=== PATIENT | female | born 1955 | race Caucasian/White ===

== ENCOUNTER 2023-05-28 22:07 | Emergency (ER) | payer MEDICARE, OTHER ==
[~2023-05-28] VITALS: Ht 157.5 cm; Wt 82.2 kg
[~2023-05-28 22:07] MED LIST: COR3 PO; FURO-151 MT; FURO-152 MT; FURO40TA5 PO; GABA-534 PO; GABA800T97 MT; INSLIS SUBCUT; INSU100I24 SQ; LANTUSUD SUBCUT; LIP40 PO; LOSA-412 PO; PULM50 HHN
[2023-05-28 22:21] VITALS: O2SAT 97
[2023-05-28 23:16] LABS: BASOPHILS % 1.3 % (0.0-2.0); EOSINOPHILS % 3.2 % (0.0-5.0); HEMATOCRIT. 37.7 % (36.0-48.0); HEMOGLOBIN. 12.8 g/dL (12.0-16.0); LYMPHOCYTES % 35.5 % (20.0-50.0); MEAN CORPUSCULAR HEMOGLOBIN 30.5 pg (28.0-32.0); MEAN CORPUSCULAR HGB CONC 33.9 g/dL (31.0-37.0); MEAN PLATELET VOLUME 9.7 fl (7.4-10.4); MONOCYTES % 7.6 % (2.0-8.0); NEUTROPHILS % 52.4 % (40.0-76.0); PLATELET 135 x1000/uL (130-400); RED BLOOD CELL COUNT 4.18 mill/uL (4.2-5.4); RED CELL DISTRIBUTION WIDTH 13.9 % (11.6-14.6); WHITE BLOOD COUNT 5.5 x1000/uL (4.5-11.0)
[2023-05-28 23:27] LABS: PARTIAL THROMBOPLASTIN TIME 28.5 sec (23.4-31.0); PROTHROMBIN TIME 10.4 sec (9.6-11.0)
[2023-05-28 23:31] LABS: ALANINE AMINOTRANSFERASE 14 IU/L (10-49); ALBUMIN 4.2 g/dL (3.2-4.8); ASPARTATE AMINOTRANSFERASE 19 IU/L (<34); BILIRUBIN TOTAL 0.5 mg/dL (0.1-1.0); CALCIUM 9.5 mg/dL (8.7-10.4); CARBON DIOXIDE 27 mEq/L (21-32); CHLORIDE 108 mEq/L (98-107); GLUCOSE 141 mg/dL (70-105); POTASSIUM 4.5 mEq/L (3.5-5.1); PROTEIN TOTAL 7.5 g/dL (6.0-8.3); SODIUM 142 mEq/L (136-145); TROPONIN I HIGH SENSITIVITY 9 ng/L (3.0-34); UREA NITROGEN BLOOD 29 mg/dL (9-23)
[2023-05-29 03:52] LABS: TROPONIN I HIGH SENSITIVITY 13 ng/L (3.0-34)
[2023-05-29] MEDS ORDERED: ACETAMINOPHEN 325MG TABLET PO ONE (05:00)
[2023-05-29 08:00] VITALS: TEMP 97.4
[2023-05-29 09:20] VITALS: BP 141/81; PULSE 82; RESP 21
== END 2023-05-29 09:22 | disposition short-term general hospital (02) ==
LOC: ER 22:07
DX: R06.02 Shortness of breath (principal); M25.511 Pain in right shoulder; E11.9 Type 2 diabetes mellitus without complications; I11.0 Hypertensive heart disease with heart failure; I50.9 Heart failure, unspecified; Z88.6 Allergy status to analgesic agent
CPT/HCPCS: 80053; 83880; 85025; 85610; 85730; 84484 ×2; 36415 ×2; 71045; 93005; 99285; 73030; Z7610 ×2

== ENCOUNTER 2024-01-09 15:18 | Emergency (ER) | payer MEDICARE, OTHER ==
[~2024-01-09] VITALS: Ht 157.5 cm; Wt 91.1 kg
[2024-01-09 15:23] VITALS: BP 139/77; PULSE 95; RESP 16; TEMP 98.6; O2SAT 98
[2024-01-09] MEDS ORDERED: DOXY100C5 MT (16:04)
[2024-01-09] MEDS ORDERED: BO1 TP (16:05)
== END 2024-01-09 16:27 | disposition home or self-care (01) ==
LOC: ER 15:18
DX: S40.821A Blister (nonthermal) of right upper arm, initial encounter (principal); L03.113 Cellulitis of right upper limb; I50.9 Heart failure, unspecified; E11.9 Type 2 diabetes mellitus without complications; F12.10 Cannabis abuse, uncomplicated; Z79.4 Long term (current) use of insulin; Z88.8 Allergy status to other drugs, medicaments and biological substances; Z79.899 Other long term (current) drug therapy; X30.XXXA Exposure to excessive natural heat, initial encounter; Y93.89 Activity, other specified; Y92.89 Other specified places as the place of occurrence of the external cause; Y99.8 Other external cause status
CPT/HCPCS: 99283

== ENCOUNTER 2024-02-27 11:00 | Inpatient (IN) | payer MEDICARE, OTHER ==
[~2024-02-27] VITALS: Ht 157.5 cm; Wt 88.0 kg
[~2024-02-27 11:00] MED LIST changes: +BO1 TP; +DOXY100C5 MT
[2024-02-27 11:59] LABS: CHLORIDE 108 mEq/L (98-107); POTASSIUM 4.6 mEq/L (3.5-5.1); SODIUM 142 mEq/L (136-145)
[2024-02-27 12:00] LABS: CALCIUM 10.2 mg/dL (8.7-10.4); CARBON DIOXIDE 25 mEq/L (21-32)
[2024-02-27 12:04] LABS: BASOPHILS % 1.3 % (0.0-2.0); EOSINOPHILS % 1.5 % (0.0-5.0); HEMATOCRIT. 40.6 % (36.0-48.0); HEMOGLOBIN. 13.2 g/dL (12.0-16.0); LYMPHOCYTES % 31.6 % (20.0-50.0); MEAN CORPUSCULAR HEMOGLOBIN 29.7 pg (28.0-32.0); MEAN CORPUSCULAR HGB CONC 32.6 g/dL (31.0-37.0); MEAN CORPUSCULAR VOLUME 91.1 fL (81.0-99.0); MONOCYTES % 6.3 % (2.0-8.0); NEUTROPHILS % 59.3 % (40.0-76.0); RED BLOOD CELL COUNT 4.45 mill/uL (4.2-5.4); RED CELL DISTRIBUTION WIDTH 13.2 % (11.6-14.6); WHITE BLOOD COUNT 6.3 x1000/uL (4.5-11.0)
[2024-02-27 12:05] LABS: GLUCOSE 157 mg/dL (70-105); TROPONIN I HIGH SENSITIVITY 11 ng/L (3.0-34); UREA NITROGEN BLOOD 17 mg/dL (9-23)
[2024-02-27 12:08] LABS: DIFFERENTIAL COMMENT 1
[2024-02-27 12:53] LABS: PROTHROMBIN TIME 10.9 sec (9.6-11.0)
[2024-02-27 13:09] LABS: PLATELET 141 x1000/uL (130-400)
[2024-02-28] MEDS ORDERED: ONDANSETRON HCL 4MG/2ML INJ IV PRN (10:00)
[2024-02-28] MEDS: LOSARTAN 25 MG TABLET PO SCH (10:35)
[2024-02-28] MEDS: FUROSEMIDE 40MG/4ML VIAL IVP SCH (10:35)
[2024-02-28 16:00] VITALS: BP 137/97; PULSE 106; RESP 16; TEMP 36.9474; O2SAT 96
[2024-02-28] MEDS: ACETAMINOPHEN 325MG TABLET PO PRN (16:47)
[2024-02-28] MEDS ORDERED: DEXTROSE 50% WATER 50ML SYRINGE IV PRN (17:15)
[2024-02-28 17:43] VITALS: BP 137/97; PULSE 106; RESP 16; TEMP 36.974
[2024-02-28] MEDS: INFLUENZA VACCINE 05/PF 0.5 ML SYRINGE IM ONE (17:45)
[2024-02-28] MEDS: INSULIN LISPRO 100 UNITS/ML SUBCUT SCH (17:48)
[2024-02-28 20:00] VITALS: BP 90/63; PULSE 78; RESP 21; TEMP 36.55848; O2SAT 94
[2024-02-28 22:15] LABS: TROPONIN I HIGH SENSITIVITY 11 ng/L (3.0-34)
[2024-02-28] MEDS: BLOOD SUGAR DIAGNOSTIC STRIP TEST SCH (22:25)
[2024-02-28 22:34] LABS: HEPATITIS B SURFACE ANTIGEN NEGATIVE (Negative)
[2024-02-28] MEDS: CARVEDILOL 3.125 MG TABLET PO SCH (22:40)
[2024-02-28 22:55] LABS: HEPATITIS C AB NON REACTIVE (Neg) (Negative)
[2024-02-29] VITALS (7 sets, daily range): BP systolic 110–145; BP diastolic 60–82; PULSE 81–113; RESP 9–25; TEMP 36.61404–36.83628; O2SAT 94–98
[2024-02-29] MEDS ORDERED: DEXTROSE 50% WATER 50ML SYRINGE IV PRN (10:45)
[2024-02-29] MEDS: ASPIRIN 81MG TABLET PO SCH (11:22)
[2024-02-29] MEDS: METOLAZONE 2.5MG TABLET PO NR (11:22)
[2024-02-29] MEDS: BLOOD SUGAR DIAGNOSTIC STRIP TEST SCH (12:07)
[2024-02-29] MEDS: INSULIN LISPRO 100 UNITS/ML SUBCUT SCH (12:47)
[2024-02-29] MEDS: GABAPENTIN 300MG CAPSULE PO SCH (14:03)
[2024-02-29] MEDS: ATORVASTATIN CALCIUM 20MG TABLET PO SCH (20:53)
[2024-03-01 00:08] VITALS: BP 107/62; PULSE 97; RESP 26; TEMP 37.00296; O2SAT 95
[2024-03-01 04:22] VITALS: BP 95/55; PULSE 82; RESP 12; TEMP 36.83628; O2SAT 94
[2024-03-01 07:40] LABS: POTASSIUM 3.6 mEq/L (3.5-5.1)
[2024-03-01 07:41] LABS: CALCIUM 10.4 mg/dL (8.7-10.4)
[2024-03-01 07:46] LABS: CREATININE 1.1 mg/dL (0.6-1.0)
[2024-03-01 08:00] VITALS: BP 86/67; PULSE 101; RESP 10; TEMP 35.89176; O2SAT 96
[2024-03-01] MEDS: SPIRONOLACTONE 25MG TABLET PO SCH (09:00)
[2024-03-01 12:00] VITALS: BP 124/76; PULSE 100; RESP 19; TEMP 36.16956; O2SAT 96
[2024-03-01 13:14] VITALS: BP 124/76; PULSE 100; TEMP 97.1; O2SAT 96
== END 2024-03-01 13:56 | disposition home or self-care (01) | DRG 194 ==
LOC: ER 11:17 → MICUSO 12:57 → EDBEDREQ 12:58 → EDBEDREQTM 12:58 → 5WST 02-28 06:40 → 3WST 02-28 15:30
PROVIDERS: ADMIT Internal Medicine; ATTEND Internal Medicine
DX: I11.0 Hypertensive heart disease with heart failure (principal); J96.00 Acute respiratory failure, unspecified whether with hypoxia or hypercapnia; I42.8 Other cardiomyopathies; I50.23 Acute on chronic systolic (congestive) heart failure; N17.9 Acute kidney failure, unspecified; I25.10 Atherosclerotic heart disease of native coronary artery without angina pectoris; E11.9 Type 2 diabetes mellitus without complications; F12.90 Cannabis use, unspecified, uncomplicated; E66.01 Morbid (severe) obesity due to excess calories; Z82.49 Family history of ischemic heart disease and other diseases of the circulatory system; Z88.6 Allergy status to analgesic agent; Z79.4 Long term (current) use of insulin; Z23 Encounter for immunization; Z79.899 Other long term (current) drug therapy; Z68.35 Body mass index [BMI] 35.0-35.9, adult; Z83.6 Family history of other diseases of the respiratory system
CPT/HCPCS: 36415; 71045; 80048; 82962; 83036; 83880; 84484; 85025; 86705; 87340; 90686; 93005; 93306; 99291; J1815; J1940

== ENCOUNTER 2024-08-19 09:36 | Inpatient (IN) | payer MEDICARE, OTHER ==
[~2024-08-19] VITALS: Ht 157.5 cm; Wt 100.3 kg
[2024-08-19 10:46] LABS: BASOPHILS % 1.1 % (0.0-2.0); EOSINOPHILS % 3.5 % (0.0-5.0); HEMATOCRIT. 38.9 % (36.0-48.0); HEMOGLOBIN. 12.8 g/dL (12.0-16.0); MEAN CORPUSCULAR HEMOGLOBIN 29.9 pg (28.0-32.0); MEAN CORPUSCULAR HGB CONC 32.9 g/dL (31.0-37.0); MEAN CORPUSCULAR VOLUME 90.9 fL (81.0-99.0); MEAN PLATELET VOLUME 10.2 fl (7.4-10.4); MONOCYTES % 6.8 % (2.0-8.0); NEUTROPHILS % 45.6 % (40.0-76.0); PLATELET 124 x1000/uL (130-400); RED BLOOD CELL COUNT 4.28 mill/uL (4.2-5.4); RED CELL DISTRIBUTION WIDTH 13.3 % (11.6-14.6); WHITE BLOOD COUNT 4.3 x1000/uL (4.5-11.0)
[2024-08-19 10:58] LABS: POTASSIUM 4.7 mEq/L (3.5-5.1)
[2024-08-19 10:59] LABS: CALCIUM 9.4 mg/dL (8.7-10.4)
[2024-08-19] MEDS ORDERED: IODIXANOL 320MG/ML 100 ML BOTTLE IV ONE (11:28)
[2024-08-19] MEDS ORDERED: GENTAMICIN SULF 40MG/ML 2ML VIAL ONE (11:28)
[2024-08-19] MEDS ORDERED: LIDOCAINE HCL 1% 20ML VIAL ONE (11:29)
[2024-08-19] MEDS ORDERED: GENTAMICIN/NS IRRIGATION 500 ML IR NR (11:30)
[2024-08-19 11:34] LABS: PARTIAL THROMBOPLASTIN TIME 27.6 sec (23.4-31.0); PROTHROMBIN TIME 11.1 sec (9.6-11.0)
[2024-08-19] MEDS ORDERED: ASPI-864 PO (11:50)
[2024-08-19] MEDS ORDERED: SACU1TAB7 PO (11:50)
[2024-08-19] MEDS ORDERED: DAPA5TAB PO (11:50)
[2024-08-19] MEDS ORDERED: DICL75TA5 PO (11:50)
[2024-08-19] MEDS ORDERED: INSU100I28 SQ (11:50)
[2024-08-19] MEDS ORDERED: GABA800T97 PO (11:50)
[2024-08-19] MEDS ORDERED: ACET-2708 PO (11:50)
[2024-08-19] MEDS ORDERED: CARV12.545 PO (11:50)
[2024-08-19] MEDS ORDERED: ATOR40TA70 PO (11:50)
[2024-08-19] MEDS ORDERED: FURO40TA5 PO (11:50)
[2024-08-19] MEDS: SODIUM CHLORIDE 0.45% 500 ML IV SCH (11:51)
[2024-08-19] MEDS ORDERED: FENTANYL CITRATE/PF 50MCG/ML 2ML VIAL ONE ×3 (11:57→14:31)
[2024-08-19] MEDS ORDERED: LIDOCAINE HCL 1% 10 MG/ML 10ML VIAL ONE (11:58)
[2024-08-19] MEDS ORDERED: PROPOFOL 200MG/20ML VIAL IV ONE (11:59)
[2024-08-19] MEDS ORDERED: PHENYLEPHRINE HCL 10MG/ML 1ML IV ONE (12:11)
[2024-08-19] MEDS ORDERED: CEFAZOLIN SODIUM 1000MG/VIAL ONE (12:22)
[2024-08-19] MEDS ORDERED: ONDANSETRON HCL 4MG/2ML INJ ONE (12:25)
[2024-08-19] MEDS ORDERED: METOCLOPRAMIDE HCL 10MG/2ML VIAL ONE (12:25)
[2024-08-19] MEDS ORDERED: EPHEDRINE SULFATE 50MG/ML VIAL ONE (12:39)
[2024-08-19] MEDS ORDERED: ONDANSETRON HCL 4MG/2ML INJ IV PRN (15:15)
[2024-08-19] MEDS ORDERED: FENTANYL CITRATE/PF 50MCG/ML 2ML VIAL IV PRN (15:15)
[2024-08-19] MEDS ORDERED: HYDROCODONE/ACETAMINOPHEN 5/325MG TABLET PO PRN (15:15)
[2024-08-19] MEDS ORDERED: NALOXONE HCL 0.4MG/ML VIAL IV PRN (15:45)
[2024-08-19 16:20] VITALS: BP 122/56; PULSE 110; RESP 17; TEMP 36.5; O2SAT 95
[2024-08-19 17:23] VITALS: BP 122/56; PULSE 103; RESP 14; TEMP 36.3
[2024-08-19 20:00] VITALS: BP 116/78; PULSE 102; RESP 17; TEMP 36.2; O2SAT 98
[2024-08-19] MEDS: CARVEDILOL 12.5MG TABLET PO SCH (21:19)
[2024-08-19] MEDS: SACUBITRIL/VALSARTAN 49MG/51MG TABLET PO SCH (21:19)
[2024-08-19 22:47] VITALS: PULSE 97; RESP 20; O2SAT 97
[2024-08-20] VITALS: BP 115/68; PULSE 87; RESP 12; TEMP 36.6; O2SAT 99
[2024-08-20 04:00] VITALS: BP 123/69; PULSE 90; RESP 16; TEMP 36.7; O2SAT 98
[2024-08-20 06:43] LABS: BASOPHILS % 0.7 % (0.0-2.0); EOSINOPHILS % 1.6 % (0.0-5.0); HEMATOCRIT. 37.1 % (36.0-48.0); LYMPHOCYTES % 23.2 % (20.0-50.0); MEAN CORPUSCULAR HEMOGLOBIN 29.4 pg (28.0-32.0); MEAN CORPUSCULAR HGB CONC 32.4 g/dL (31.0-37.0); MEAN CORPUSCULAR VOLUME 90.6 fL (81.0-99.0); MEAN PLATELET VOLUME 10.7 fl (7.4-10.4); MONOCYTES % 7.9 % (2.0-8.0); NEUTROPHILS % 66.6 % (40.0-76.0); PLATELET 112 x1000/uL (130-400); RED CELL DISTRIBUTION WIDTH 13.6 % (11.6-14.6); WHITE BLOOD COUNT 6.7 x1000/uL (4.5-11.0)
[2024-08-20 07:10] LABS: CARBON DIOXIDE 25 mEq/L (21-32); CHLORIDE 110 mEq/L (98-107); POTASSIUM 4.4 mEq/L (3.5-5.1); SODIUM 144 mEq/L (136-145)
[2024-08-20 07:11] LABS: CALCIUM 9.1 mg/dL (8.7-10.4)
[2024-08-20 07:15] LABS: CREATININE 0.8 mg/dL (0.6-1.0)
[2024-08-20 07:16] LABS: GLUCOSE 125 mg/dL (70-105); UREA NITROGEN BLOOD 14 mg/dL (9-23)
[2024-08-20 08:00] VITALS: BP 115/83; PULSE 90; RESP 16; TEMP 36.8; O2SAT 98
[2024-08-20] MEDS: FUROSEMIDE 40MG TABLET PO SCH (08:52)
[2024-08-20 12:00] VITALS: BP 119/60; PULSE 90; RESP 16; TEMP 36.7; O2SAT 98
[2024-08-20 14:36] VITALS: BP 119/60; PULSE 85; TEMP 98; O2SAT 95
[2024-08-20] MEDS ORDERED: CEPH250C2 MT (16:47)
[2024-08-20] MEDS ORDERED: TRAM50TA3 MT (16:52)
== END 2024-08-20 18:26 | disposition home or self-care (01) | DRG 275 ==
LOC: CCL 09:36 → 3WST 16:20
PROVIDERS: ADMIT Internal Medicine Clinical Cardiac Electrophysiology; ATTEND Internal Medicine Clinical Cardiac Electrophysiology
PROC: 4A023N6 Measurement of Cardiac Sampling and Pressure, Right Heart, Percutaneous Approach (ICD-10-PCS; principal; 2024-08-19)
PROC: 0JH609Z Insertion of Cardiac Resynchronization Defibrillator Pulse Generator into Chest Subcutaneous Tissue and Fascia, Open Approach (ICD-10-PCS; 2024-08-19)
PROC: 02HK3KZ Insertion of Defibrillator Lead into Right Ventricle, Percutaneous Approach (ICD-10-PCS; 2024-08-19)
PROC: 02H63KZ Insertion of Defibrillator Lead into Right Atrium, Percutaneous Approach (ICD-10-PCS; 2024-08-19)
PROC: B517YZZ Fluoroscopy of Left Subclavian Vein using Other Contrast (ICD-10-PCS; 2024-08-19)
PROC: 4A0234Z Measurement of Cardiac Electrical Activity, Percutaneous Approach (ICD-10-PCS; 2024-08-19)
PROC: 4B02XTZ Measurement of Cardiac Defibrillator, External Approach (ICD-10-PCS; 2024-08-19)
DX: I44.7 Left bundle-branch block, unspecified (principal); I50.23 Acute on chronic systolic (congestive) heart failure; I13.0 Hypertensive heart and chronic kidney disease with heart failure and stage 1 through stage 4 chronic kidney disease, or unspecified chronic kidney disease; I42.0 Dilated cardiomyopathy; E11.22 Type 2 diabetes mellitus with diabetic chronic kidney disease; E78.5 Hyperlipidemia, unspecified; I27.29 Other secondary pulmonary hypertension; N18.2 Chronic kidney disease, stage 2 (mild); Z87.891 Personal history of nicotine dependence; Z99.2 Dependence on renal dialysis
CPT/HCPCS: 33225; 33249; 36415; 71045; 75820; 80048; 82962; 85025; 93005; 93451; 93641; 94070; 94760; A4565; A4606; C1722; C1893; C1898; J0690; J1580; J1644; J2003; J2371; J2405; J2704; J2765; J3010; J3490; Q9967; C1895